=== PATIENT | male | born 1950 | race Hispanic/Latino ===

== ENCOUNTER 2020-06-21 23:08 | Observation (INO) | payer OTHER, SELFPAY ==
[2020-06-22] MEDS ORDERED: Aspirin 325 MG TAB ONE (00:15)
[2020-06-22 00:36] LABS: Bilirubin Negative (Negative); Blood, Urine Negative (Negative); Clarity Clear (Clear); Glucose, Urine (Dipstick) Greater than 1000 mg/dL (Negative); Ketone, Urine 10 mg/dL (Negative); Leukocyte Negative Leu/uL (Negative); Nitrite Negative (Negative); Protein, Urine (Dipstick) Negative (Neg-Trace); Specific Gravity, Urine 1.035 (1.002-1.036); Urobilinogen Normal mg/dL (Less than 2)
[2020-06-22] MEDS ORDERED: hydrALAZINE 20 MG/ML VIAL SLOW IVP PRN (00:54)
[2020-06-22 01:00] LABS: Hemoglobin 15.3 g/dL (14.0-18.0); Mean Corpuscular HGB CONC 32.8 g/dL (32.0-36.0); Mean Corpuscular Hemoglobin 30.9 pg (27.0-31.0); Mean Corpuscular Volume 94.2 fL (78.0-98.0); RBC Distribution Width 13.4 % (11.5-14.5); Red Blood Cell (RBC) Count 4.95 mill/uL (4.70-6.10); White Blood Cell (WBC) Count 11.5 thou/uL (4.8-10.8)
[2020-06-22 01:03] LABS: #Basophils 0.1 thou/uL (0.0-0.2); #Lymphocytes 1.8 thou/uL (1.20-3.40); #Monocytes 0.8 thou/uL (0.11-0.59); #Neutrophils 8.8 thou/uL (1.40-6.50); %Basophils 0.5 % (0.0-1.0); %Eosinophils 0.4 % (0.0-10.0); %Lymphocytes 15.6 % (21.0-51.0); %Monocytes 6.7 % (0.0-10.0); %Neutrophils 76.9 % (42.0-75.0); Mean Platelet Volume 11.9 fL (7.4-10.4); Platelet Count 109 thou/uL (130-400); Platelet Morphology Comment Appears Decreased; RBC Morphology Normal
--- NOTE | 2020-06-22 01:07 | PDOC.HHP ---
Hospitalist HPI - History of Present Illness Left arm weakness History of Present Illness: 70-year-old Iranian-speaking man with a history of hypertension, GERD, diabetes mellitus and hyperlipidemia was transferred from [facility] due to left upper extremity weakness which per patient has been present for about 3 days. Patient also reports uncontrollable twitching/hand movement associated w ith the weakness. Patient denied any speech problem. He denied any problem with swallowing. He denied any leg weakness. CT head done at [facility] did not show any acute changes. Cervical spine CT also showed no acute changes. His blood pressure was moderately elevated here in the ED. His blood sugar also in the 400s. Acute CVA is suspected. Patient is out of the window for TPA. He is admitted for further management. ED Course: Patient was given aspirin, hydralazine and insulin in the ED. Hospitalist ROS - Review of Systems Other: Except as documented, all other systems reviewed and negative. Hospitalist History - Past Medical History Cardiac: reports: HTN, Hyperlipidemia, Other (GERD) Gastrointestinal: reports: GERD Endocrine: reports: Diabetes - Past Surgical History Past Surgical History: reports: Other (Screws in right leg) - Social History Smoking Status: Former smoker Alcohol: reports: None Drugs: reports: none - Exam General Appearance: NAD, awake alert Eye: PERRL, anicteric sclera ENT: normocephalic atraumatic, no oropharyngeal lesions, moist mucosa Neck: supple, symmetric, no JVD, no thyromegaly, no carotid bruit Heart: RRR, no murmur, no gallops, normal peripheral pulses Respiratory: CTAB, no wheezes, no rales, no ronchi Gastrointestinal: soft, non-tender, non-distended, normal bowel sounds Extremities: no cyanosis, no edema Skin: normal turgor, no lesions Neurological: cranial nerve grossly intact Neurological - other findings: Left upper extremity spastic weakness Musculoskeletal - other findings: Increased tone in Right UL. Psychiatric: normal affect, normal behavior, A&O x 3 Hospitalist Results - Labs Result Diagrams: 06/22/20 05:07 06/22/20 05:07 Lab results: WBC 11.5 thou/uL (4.8-10.8) H 06/22/20 00:37 Hgb 15.3 g/dL (14.0-18.0) 06/22/20 00:37 Hct 46.6 % (42.0-52.0) 06/22/20 00:37 MCV 94.2 fL (78.0-98.0) 06/22/20 00:37 Plt Count 109 thou/uL (130-400) L 06/22/20 00:37 Neutrophils % 76.9 % (42.0-75.0) H 06/22/20 00:37 Urine Ketones 10 mg/dL (Negative) A 06/22/20 00:24 Urine Blood Negative (Negative) 06/22/20 00:24 Urine Nitrite Negative (Negative) 06/22/20 00:24 Ur Leukocyte Esterase Negative Tammy/uL (Negative) 06/22/20 00:24 - Radiology Interpretation CT scan - head Additional Comment: No acute intracranial changes. Hospitalist H&P A/P - Problem (1) Acute CVA (cerebrovascular accident) Code(s): I63.9 - CEREBRAL INFARCTION, UNSPECIFIED Status: Acute (2) Type 2 diabetes mellitus Status: Acute (3) Hypertension Code(s): I10 - ESSENTIAL (PRIMARY) HYPERTENSION Status: Acute (4) Hyperlipidemia Code(s): E78.5 - HYPERLIPIDEMIA, UNSPECIFIED Status: Acute (5) GERD (gastroesophageal reflux disease) Code(s): K21.9 - GASTRO-ESOPHAGEAL REFLUX DISEASE WITHOUT ESOPHAGITIS Status: Acute - Plan Plan: Patient has spastic weakness of the left upper extremity and suspect upper motor neuron lesion with acute CVA most likely cause. Admit to the stroke unit Will treat with aspirin 325 mg daily. We will increase his Lipitor to 80 mg nightly. Check lipid profile. Obtain MRI of the brain and MRI of the cervical spine. Neurology consult Aggressive blood sugar control with insulin sliding scale. Start Lantus insulin Check hemoglobin A1c. Blood pressure control. Hydralazine IV as needed for BP spikes. Allow permissive hypertension.
[2020-06-22 01:08] LABS: ALT (SGPT) 30 U/L (8-55); AST (SGOT) 16 U/L (5-34); Albumin 3.8 g/dL (3.4-4.8); Alkaline Phosphatase 61 U/L (40-110); Anion Gap 18 mmol/L (10-20); BUN (Urea Nitrogen) 46 mg/dL (8.4-25.7); Bilirubin, Total 2.2 mg/dL (0.2-1.2); Calc. Creatinine Clearance 0 mL/min (70-130); Calcium 9.1 mg/dL (7.8-10.44); Carbon Dioxide 23 mmol/L (23-31); Chloride 104 mmol/L (98-107); Estimated GFR-MDRD 44; Globulin 2.7 g/dL (2.4-3.5); Glucose 450 mg/dL (80-115); Potassium 4.9 mmol/L (3.5-5.1); Protein, Total 6.5 g/dL (5.8-8.1); Sodium 140 mmol/L (136-145)
[2020-06-22 02:46] VITALS: BMI 24.0
[2020-06-22] MEDS: Sodium Chloride 0.9% 1,000 ML IV SCH ×2 (04:13→22:01)
[2020-06-22 05:23] LABS: Hemoglobin A1c 12.8 % (4.0-6.0)
[2020-06-22 05:25] LABS: #Basophils 0.1 thou/uL (0.0-0.2); #Eosinphils 0.1 thou/uL (0.0-0.7); #Lymphocytes 1.9 thou/uL (1.20-3.40); #Monocytes 0.6 thou/uL (0.11-0.59); #Neutrophils 7.6 thou/uL (1.40-6.50); %Basophils 0.8 % (0.0-1.0); %Eosinophils 0.8 % (0.0-10.0); %Lymphocytes 18.8 % (21.0-51.0); %Monocytes 5.7 % (0.0-10.0); %Neutrophils 73.8 % (42.0-75.0); Hemoglobin 14.8 g/dL (14.0-18.0); Mean Corpuscular HGB CONC 34.1 g/dL (32.0-36.0); Mean Corpuscular Hemoglobin 31.9 pg (27.0-31.0); Mean Corpuscular Volume 93.6 fL (78.0-98.0); Mean Platelet Volume 12.3 fL (7.4-10.4); Platelet Count 107 thou/uL (130-400); RBC Distribution Width 13.5 % (11.5-14.5); Red Blood Cell (RBC) Count 4.64 mill/uL (4.70-6.10); White Blood Cell (WBC) Count 10.3 thou/uL (4.8-10.8)
[2020-06-22 05:40] LABS: Anion Gap 19 mmol/L (10-20); BUN (Urea Nitrogen) 48 mg/dL (8.4-25.7); Calc. Creatinine Clearance 54 mL/min (70-130); Carbon Dioxide 22 mmol/L (23-31); Cardiac Risk 2.8 (Less than 4.5); Chloride 102 mmol/L (98-107); Cholesterol 105 mg/dl (< 200 Desired); Estimated GFR-MDRD 48; Glucose 440 mg/dL (80-115); HDL Cholesterol 38 mg/dL (>60 Neg Risk); LDL Cholesterol, Calculated 50 mg/dL; Potassium 4.7 mmol/L (3.5-5.1); Sodium 138 mmol/L (136-145); Triglycerides 83 mg/dL (Less than 150)
[2020-06-22] MEDS: Insulin Regular 300 UNITS/3 ML VIAL SC PRN ×3 (06:38→17:45)
--- NOTE | 2020-06-22 09:28 | MRI ---
Exam: Brain MRI without contrast HISTORY: Uncontrollable left arm movement. Evaluate for CVA. COMPARISON: None FINDINGS: Calvarial marrow signal intensity: Appropriate T1 signal Gradient echo sequence: No hemorrhage Brain parenchyma: No mass, mass effect or midline shift. Brain volume, age-appropriate. Cortical craven-white matter differentiation: Preserved Restricted diffusion: Central arterial flow voids are maintained. Absent restricted diffusion White matter signal intensities:Scattered T2, FLAIR white matter hyperintensities due to chronic smal l vessel ischemic changes Sinuses: Adequate aeration of the paranasal sinuses and mastoid air cells. IMPRESSION: 1. Absent restricted diffusion. No acute infarct.
[2020-06-22 10:13] LABS: Glucose 316 mg/dL (80-115)
[2020-06-22] MEDS: Enoxaparin Sodium 40 MG/0.4 ML SYRINGE SC SCH (10:36)
[2020-06-22] MEDS: Aspirin 325 mg Enteric Coated Tablet PO SCH (10:36)
[2020-06-22] MEDS: Insulin Glargine 10 UNITS in Pre-Filled Syringe 1 EACH SC SCH (11:36)
--- NOTE | 2020-06-22 12:56 | MRI ---
MRI CERVICAL SPINE: INDICATION: Uncontrolled movement of the left arm with left upper extremity weakness and history of stroke. COMPARISON: None. FINDINGS: The visualized aspects of the posterior fossa appear within normal limits. Bone marrow signal intens ity appears within normal limits. Motion artifact does limit image detail on the exam. At C2-C3, there is mild facet joint degenerative change, but no appreciable central canal or neural f oraminal narrowing. At C3-4, there is moderate left and mild right facet joint degenerative change, but there is no appre ciable central canal or neural foraminal narrowing. At C4-5, there is mild facet joint degenerative change, but no appreciable central canal or neural fo raminal narrowing. At C5-6, there is an asymmetric to the left disk-osteophyte complex with uncovertebral hypertrophy an d facet degenerative change inducing mild left neural foraminal narrowing. At C6-7, there is a broad-based disk bulge with uncovertebral hypertrophy and facet joint degenerativ e change inducing moderate to severe right neural foraminal narrowing. At C7-T1, there is facet degenerative change without appreciable central canal or neural foraminal na rrowing. IMPRESSION: Mild to moderate spondylosis of the cervical spine with moderate to severe right neural foraminal anitra rowing at C6-7. There is mild left neural foraminal narrowing at C5-6. POS: [facility]
[2020-06-22 13:17] LABS: SARS-CoV-2 MS2 Positive; SARS-CoV-2 N Gene Negative; SARS-CoV-2 S Gene Negative; SARS-CoV-2 by NAA Not Detected (NotDetected); SARS-CoV-2 orf1ab Negative
[2020-06-22 13:32] LABS: Glucose 371 mg/dL (80-115)
--- NOTE | 2020-06-22 14:23 | EEG ---
DATE OF SERVICE: 06/22/2020 ATTENDING PHYSICIAN: Valorie Swift MD This EEG was performed using 24-channel [employer] video digital EEG machine with 24-disk electrodes. This was an extended 2 hours 6 minutes of inpatient video EEG recording. Digital analysis of the EEG was done for spike and seizure detection, which revealed no abnormalities. BACKGROUND: There was a nonsustained posterior background rhythm of 8 to 8.5 hertz. Minimal reactivity seen with eye opening and closure. HYPERVENTILATION: Not performed. PHOTIC STIMULATION: Not performed. SLEEP: Drowsiness is observed. SPELLS: The patient had multiple episodes of left upper extremity shaking, not associated in any abnormal EEG correlate. EEG DIAGNOSIS: Occasional irregular theta activity seen during the recording. CLINICAL INTERPRETATION: This EEG is consistent with mild generalized nonspecific cerebral dysfunction. Job ID: [id number]
--- NOTE | 2020-06-22 14:41 | CON ---
NEUROLOGY CONSULTATION DATE OF CONSULTATION: 06/22/2020 REASON FOR CONSULTATION: Rule out stroke, left upper extremity weakness. HISTORY OF PRESENT ILLNESS: Mr. James is a 70-year-old Citizen Of [place]-speaking male with a history significant for gastroesophageal reflux disease, hypertension, diabetes mellitus, and hyperlipidemia, who was transferred from [facility] due to progressive left upper extremity weakness since the last 3 days. Per patient, he also has uncontrollable twitching and abnormal movements of the left hand associated with weakness. He denies any paresthesias, nausea, vomiting, headache, chest pain, abdominal pain, problems with speech or swallowing associated with this episode. CT scan of the head was done at the [facility], which did not reveal any acute intracranial pathology. Cervical spine CT did not show any acute changes. His blood pressure was elevated in the emergency room and his blood sugar was in 400s. The patient was out of the window for tPA, so he was admitted for further management and given aspirin, hydralazine, and insulin in the emergency room. REVIEW OF SYSTEMS: All 14 systems were reviewed and were negative except the pertinent positives and negatives mentioned in the HPI. PAST MEDICAL HISTORY: 1. Hypertension. 2. Hyperlipidemia. 3. Gastroesophageal reflux disease. 4. Diabetes. PAST SURGICAL HISTORY: Screws in the right leg. SOCIAL HISTORY: He is a former smoker. Denies alcohol or illegal drug use. PHYSICAL EXAMINATION: 150/60 70 18 General Appearance: NAD, awake alert Eye: PERRL, anicteric sclera ENT: normocephalic atraumatic, no oropharyngeal lesions, moist mucosa Neck: supple, symmetric, no JVD, no thyromegaly, no carotid bruit Heart: RRR, no murmur, no gallops, normal peripheral pulses Respiratory: CTAB, no wheezes, no rales, no ronchi Gastrointestinal: soft, non-tender, non-distended, normal bowel sounds Extremities: no cyanosis, no edema Skin: normal turgor, no lesions Neurological: cranial nerve grossly intact Neurological - Mental status; the patient is alert and oriented to person, place, and time. Speech is clear. Recent and remote memory, intact. Motor: Muscle tone and bulk are normal. Strength: Left upper extremity 4/5, rest 5/5. Sensory intact. Gait deferred. Cerebellar, finger-nose testing intact. Sensory intact. Cranial nerves 2 through 12 intact. Gait deferred due to the patient's safety reason. Lab results: WBC 11.5 thou/uL (4.8-10.8) H 06/22/20 00:37 Hgb 15.3 g/dL (14.0-18.0) 06/22/20 00:37 Hct 46.6 % (42.0-52.0) 06/22/20 00:37 MCV 94.2 fL (78.0-98.0) 06/22/20 00:37 Plt Count 109 thou/uL (130-400) L 06/22/20 00:37 Neutrophils % 76.9 % (42.0-75.0) H 06/22/20 00:37 Urine Ketones 10 mg/dL (Negative) A 06/22/20 00:24 Urine Blood Negative (Negative) 06/22/20 00:24 Urine Nitrite Negative (Negative) 06/22/20 00:24 Ur Leukocyte Esterase Negative Tammy/uL (Negative) 06/22/20 00:24 - Radiology Interpretation CT scan - head Additional Comment: No acute intracranial changes. DIAGNOSTIC STUDIES: Data reviewed. I reviewed the labs, which are significant for hyperglycemia, 440, and renal insufficiency for BUN 49 and creatinine of 1.46. Head CT did not reveal any acute intracranial pathology. ASSESSMENT AND PLAN: (1) Acute CVA (cerebrovascular accident) Code(s): I63.9 - CEREBRAL INFARCTION, UNSPECIFIED Status: Acute (2) Type 2 diabetes mellitus Status: Acute (3) Hypertension Code(s): I10 - ESSENTIAL (PRIMARY) HYPERTENSION Status: Acute (4) Hyperlipidemia Code(s): E78.5 - HYPERLIPIDEMIA, UNSPECIFIED Status: Acute (5) GERD (gastroesophageal reflux disease) Code(s): K21.9 - GASTRO-ESOPHAGEAL REFLUX DISEASE WITHOUT ESOPHAGITIS Status: Acute Mr. Jacob Alvarado is a 70-year-old male with history significant for diabetes, hypertension, hyperlipidemia, gastroesophageal reflux disease, presented with left upper extremity weakness for [address] negative for acute intracranial pathology. MRI of the brain reviewed and was negative for acute intracranial process. MRI of the cervical spine completed, results pending. Strict control of blood pressure and blood glucose. Check hemoglobin A1c, TSH, and fasting lipid panel. PT/OT. EEG to evaluate for left upper extremity uncontrollable twitching, rule out underlying seizure disorder. Neuro checks every 4 hours. Continue home medications. Continue medical management per primary team. Plan discussed during the MDR rounds. Job ID: [id number] HUBER
[2020-06-22 17:40] LABS: ANA Symphony (Qualitative) Negative (Negative); ANA Symphony (Quantitative) 0.1 Ratio (< 0.7 Negative)
[2020-06-22] MEDS ORDERED: Atorvastatin Calcium 40 MG TAB PO SCH (21:00)
[2020-06-22] MEDS ORDERED: Insulin Regular 300 UNITS/3 ML VIAL SC PRN (22:50)
[2020-06-23] MEDS: Insulin Regular 300 UNITS/3 ML VIAL SC PRN ×2 (05:57→11:56)
[2020-06-23] MEDS: Enoxaparin Sodium 40 MG/0.4 ML SYRINGE SC SCH (09:13)
[2020-06-23] MEDS: Insulin Glargine 10 UNITS in Pre-Filled Syringe 1 EACH SC SCH (09:15)
[2020-06-23] MEDS: Aspirin 325 mg Enteric Coated Tablet PO SCH (09:17)
[2020-06-23] MEDS ORDERED: Gabapentin 100 MG CAP PO SCH (09:45)
[2020-06-23 14:50] VITALS: BP 137/103; TEMP 98.7
--- NOTE | 2020-06-24 01:48 | DIS ---
DATE OF ADMISSION: 06/22/2020 DATE OF DISCHARGE: 06/23/2020 PRIMARY CARE PROVIDER: Unknown. DISCHARGE DIAGNOSES: 1. Neuropathic pain. 2. Diabetes mellitus type 2, new diagnosis. 3. Chronic kidney disease, stage 3. CONDITION OF THE PATIENT ON THE DAY OF DISCHARGE: Stable. I assessed Mr. Jacob Alvarado on the day of discharge. He denies any chest pain or shortness of breath. Vital signs are stable. S1 and S2 are heard, regular. Lungs are clear to auscultation bilaterally. CONSULTATIONS DURING THIS HOSPITALIZATION: Neurology, Dr. Swift. HOSPITAL COURSE: Mr. Jacob Alvarado is a pleasant 70-year-old gentleman who was admitted to [facility] for left upper extremity pain and weakness. MRI of the brain did not show any acute infarct. MRI of the cervical spine showed [id number] spondylosis of the cervical spine with [id number] right neural foraminal narrowing at C6-C7 and mild left neural foraminal narrowing at C5-C6. He is being started on gabapentin for neuropathic pain. EEG was consistent with mild generalized nonspecific cerebral dysfunction. 2D echocardiogram showed left ventricular ejection fraction of 60% to 65%, E/A flow reversal suggestive of diastolic dysfunction, normal right ventricular size and function, normal-sized left atrium, normal-sized right atrium, structurally normal mitral valve, trace mitral regurgitation, structurally normal aortic valve, and trace tricuspid regurgitation. Hemoglobin A1c was elevated at 12.8. Fasting lipid profile showed triglycerides 83, cholesterol 105, LDL cholesterol 50, HDL cholesterol 38. His creatinine was 1.46 on June 22. He has been advised to check his blood sugars 3 times a day and follow up with primary care provider. He has also been advised to follow up with primary care provider for management of cervical spinal foraminal narrowing. He may need outpatient referrals to Neurosurgery or Pain Management. DISCHARGE MEDICATIONS: 1. Glipizide 2.5 mg daily. 2. Gabapentin 100 mg three times a day. DIET: Diabetic diet. ACTIVITY: As tolerated. POST ACUTE CARE FOLLOWUP: With primary care provider in 3 days. DISCHARGE DESTINATION: Home. Job ID: [id number]
== END 2020-06-23 14:53 | disposition home or self-care (01) ==
LOC: ERS 23:08 → INTOOBSV 06-22 00:40 → 2SE 06-22 00:40
PROVIDERS: ADMIT Internal Medicine; ATTEND Internal Medicine
DX: E11.40 Type 2 diabetes mellitus with diabetic neuropathy, unspecified (principal); I12.9 Hypertensive chronic kidney disease with stage 1 through stage 4 chronic kidney disease, or unspecified chronic kidney disease; E11.22 Type 2 diabetes mellitus with diabetic chronic kidney disease; N18.30 Chronic kidney disease, stage 3 unspecified; E78.5 Hyperlipidemia, unspecified; K21.9 Gastro-esophageal reflux disease without esophagitis; E11.65 Type 2 diabetes mellitus with hyperglycemia; M47.812 Spondylosis without myelopathy or radiculopathy, cervical region; M48.02 Spinal stenosis, cervical region; Z87.891 Personal history of nicotine dependence; Z79.52 Long term (current) use of systemic steroids; Z79.899 Other long term (current) drug therapy; Z20.828 Contact with and (suspected) exposure to other viral communicable diseases
CPT/HCPCS: 36415; 36416; 70551; 72141; 80053; 80061; 81003; 82010; 83036; 83090; 85025; 85652; 86038; 86225; 87635; 90471; 90732; 93306; 95712; 95816; 95819; 96360; 96361; 96372; G0009; G0378; J1650; J1815; U0003